=== PATIENT | female | born 1975 | race Caucasian/White ===

== ENCOUNTER 2019-03-23 05:05 | Inpatient (IN) | payer OTHER ==
[2019-03-23] VITALS (19 sets, daily range): BP systolic 83–101; BP diastolic 47–60; PULSE 74–95; RESP 18–29; Ht 160 cm; Wt 69.7 kg
[~2019-03-23] VITALS: Ht 160 cm; Wt 69.7 kg
[2019-03-23] MEDS ORDERED: SOD CHLORIDE 0.9% 1,000 ML IV STA (05:25)
[2019-03-23] MEDS ORDERED: morphine 4 MG/ML VIAL IV STA ×3 (05:25→07:03)
[2019-03-23] MEDS ORDERED: ONDANSETRON 4 MG INJ IV STA (05:25)
--- NOTE | 2019-03-23 05:53 | ERD ---
ER Documentation Chief Complaint Chief Complaint Lower abdominal pain with nausea since yesterday HPI Patient is a 43-year-old female who presents with abdominal pain. The patient has right lower quadrant abdominal pain which started yesterday. She has subjective fevers. She has had no treatment as of yet. She said that the pain is gotten worse since yesterday and it was most severe this morning which is what made her come to the emergency department. The pain is sharp in nature and constant. Upon review of old medical records this the patient's first visit to the emergency department. ROS All systems reviewed and are negative except as per history of present illness. Allergies Allergies: Coded Allergies: No Known Allergy (Unverified , 03/23/19) PMhx/Soc Medical and Surgical Hx: pt denies Medical Hx, pt denies Surgical Hx Hx Alcohol Use: Yes Smoking Status: Unknown if ever smoked FmHx Family History: No diabetes Physical Exam Vitals Vital Signs Date Temp Pulse Resp B/P (MAP) Pulse Ox O2 O2 Flow FiO2 Time Delivery Rate 03/23/19 99.3 95 18 106/64 96 05:10 (78) Physical Exam Const: Moderate distress Head: Atraumatic Eyes: Normal Conjunctiva ENT: Normal External Ears, Nose and Mouth. Neck: Full range of motion. No meningismus. Resp: Clear to auscultation bilaterally Cardio: Regular rate and rhythm, no murmurs Abd: Right lower quadrant tenderness to palpation with guarding Skin: No petechiae or rashes Back: No midline or flank tenderness Ext: No cyanosis, or edema Neur: Awake and alert Psych: Normal Mood and Affect Result Diagram: 03/23/19 0529 Results 24 hrs Laboratory Tests Test 03/23/19 05:29 White Blood Count 20.7 10^3/ul Red Blood Count 4.94 10^6/ul Hemoglobin 15.3 g/dl Hematocrit 46.0 % Mean Corpuscular Volume 93.1 fl Mean Corpuscular Hemoglobin 31.0 pg Mean Corpuscular Hemoglobin Concent 33.3 g/dl Red Cell Distribution Width 12.3 % Platelet Count 251 10^3/UL Mean Platelet Volume 9.9 fl Immature Granulocytes % 0.500 % Neutrophils % 84.9 % Lymphocytes % 7.4 % Monocytes % 7.1 % Eosinophils % 0.0 % Basophils % 0.1 % Nucleated Red Blood Cells % 0.0 /100WBC Immature Granulocytes # 0.100 10^3/ul Neutrophils # 17.5 10^3/ul Lymphocytes # 1.5 10^3/ul Monocytes # 1.5 10^3/ul Eosinophils # 0.0 10^3/ul Basophils # 0.0 10^3/ul Nucleated Red Blood Cells # 0.0 10^3/ul Current Medications Medications Dose Sig/Aminta Start Time Status Last (Trade) Ordered Route PRN Stop Time Admin Dose Reason Admin Sodium 1,000 ml @ Q1H STAT 03/23/19 03/23/19 Chloride 1,000 mls/hr IV 05:25 05:44 03/23/19 06:24 Morphine 4 mg ONCE STAT 03/23/19 DC 03/23/19 Sulfate IV 05:25 05:44 (morphine) 03/23/19 05:26 Ondansetron 4 mg ONCE STAT 03/23/19 DC 03/23/19 HCl (Zofran IV 05:25 05:44 Inj) 03/23/19 05:26 Procedures/MDM CT abdomen pelvis is pending at this time. Patient is a 43-year-old female who presents with severe right lower quadrant abdominal pain. The patient has a white count of 20. Her CT scan of the abdomen and pelvis is pending. I am concerned about acute appendicitis. The patient will be signed out to the oncoming physician for further results and final disposition. The patient was given morphine, Zofran, and normal saline bolus. Departure Diagnosis: Primary Impression: Abdominal pain Abdominal location: right lower quadrant Qualified Codes: R10.31 - Right lower quadrant pain Condition: SALVADOR Whitten MD Mar 23, 2019 05:53
[2019-03-23] MEDS ORDERED: CEFTRIAXONE 1 GM/50 ML (PMX) 50 ML IVPB STA (07:00)
[2019-03-23] MEDS ORDERED: metroNIDAZOLE 500 MG/NS (PMX) 100 ML IVPB STA (07:00)
[2019-03-23] MEDS ORDERED: SOD CHLORIDE 0.9% 1,000 ML IV SCH (08:56)
[2019-03-23] MEDS ORDERED: ACETAMINOPHEN 325 MG TAB PO PRN (09:00)
[2019-03-23] MEDS ORDERED: ONDANSETRON 4 MG INJ IV PRN ×2 (09:00→14:30)
[2019-03-23] MEDS ORDERED: DIPHTH/TET/ACEL PERTUSS (ADULT) 0.5 ML VIAL IM* ONE (10:30)
[2019-03-23] MEDS ORDERED: ACETAMINOPHEN 650 MG SUPP PR PRN (10:30)
[2019-03-23] MEDS ORDERED: NA PHOSPHATE/BIPHOS 133 ML ENEMA PR PRN (10:30)
[2019-03-23] MEDS ORDERED: NACL 0.9% 3 ML SYG IV SCH (10:30)
--- NOTE | 2019-03-23 10:38 | HP ---
Date/Time of Note Date/Time of Note DATE: 03/23/19 TIME: 10:30 Assessment/Plan VTE Prophylaxis SCD applied (from Nsg): Yes Pharmacological prophylaxis: NA/contraindicated Pharm contraindication: surgical contra Lines/Catheters IV Catheter Type (from Nrs): Peripheral IV Assessment/Plan Problems: (1) Acute appendicitis Status: Acute Comment: Patient is stable for surgery and appropriate to proceed. She has an average surgical risk as compared to her age-matched peers and should do well using all standard and routine anesthesia precautions. Using the modified Rahman's criteria she is at low intermediate risk MPRESSION: 1. Findings consistent with acute appendicitis. No evidence for perforation. 2. Small hiatal hernia. Small fat containing umbilical hernia. Qualifiers: Acute appendicitis type: with localized peritonitis Appendicitis gangrene presence: without gangrene Appendicitis perforation presence: without perforation Appendicitis abscess presence: without abscess Qualified Codes: K35.30 - Acute appendicitis with localized peritonitis, without perforation or gangrene (2) Asthma, mild intermittent, well-controlled Status: Chronic Comment: She will be given a breathing treatment prior to going into the operating room. (3) Tobacco abuse Status: Chronic Comment: Counseled (4) Umbilical hernia Status: Chronic Comment: Noted. MPRESSION: 1. Findings consistent with acute appendicitis. No evidence for perforation. 2. Small hiatal hernia. Small fat containing umbilical hernia. Qualifiers: Obstruction and gangrene presence: without obstruction or gangrene Qualified Codes: K42.9 - Umbilical hernia without obstruction or gangrene Result Diagram: 03/23/19 0529 03/23/19 0537 Results 24hrs Laboratory Tests Test 03/23/19 05:29 03/23/19 05:37 White Blood Count 20.7 H Red Blood Count 4.94 Hemoglobin 15.3 Hematocrit 46.0 Mean Corpuscular Volume 93.1 Mean Corpuscular Hemoglobin 31.0 Mean Corpuscular Hemoglobin Concent 33.3 Red Cell Distribution Width 12.3 Platelet Count 251 Mean Platelet Volume 9.9 Immature Granulocytes % 0.500 H Neutrophils % 84.9 H Lymphocytes % 7.4 L Monocytes % 7.1 Eosinophils % 0.0 Basophils % 0.1 Nucleated Red Blood Cells % 0.0 Immature Granulocytes # 0.100 H Neutrophils # 17.5 H Lymphocytes # 1.5 Monocytes # 1.5 H Eosinophils # 0.0 Basophils # 0.0 Nucleated Red Blood Cells # 0.0 Sodium Level 138 Potassium Level 4.0 Chloride Level 102 Carbon Dioxide Level 27 Anion Gap 9 Blood Urea Nitrogen 11 Creatinine 0.77 Est Glomerular Filtrat Rate mL/min > 60 Glucose Level 125 Calcium Level 9.4 Total Bilirubin 0.8 Direct Bilirubin 0.00 Indirect Bilirubin 0.8 Aspartate Amino Transf (AST/SGOT) 23 Alanine Aminotransferase (ALT/SGPT) 30 Alkaline Phosphatase 76 Total Protein 7.6 Albumin 4.3 Globulin 3.30 H Albumin/Globulin Ratio 1.30 Lipase 73 Serum HCG, Qualitative NEGATIVE HPI/ROS Admit Date/Time Admit Date/Time March 23, 2019 Hx of Present Illness This is the first [facility] admission for this 43-year-old right-handed single female who was admitted with right lower quadrant pain with work-up consistent with acute appendicitis. She had been in her usual state of functional health. She developed right lower quadrant pain that progressively worsened to the point that she developed nausea and vomiting. She had fevers x2. She presents the emergency room where she is been found to have a work-up consistent with appendicitis with fever elevated white count abnormal right lower quadrant exam and abnormal imaging. She is already been consulted on by general surgery-Dr. Juvenal Barreto, who will be taking her to the operating room later today. She is otherwise in good health and can climb 3 flights of stairs with unimpeded when she is not acutely ill. ROS Constitutional: no complaints (Since onset of fevers in the last 12 hours otherwise negative) Eyes: no complaints ENT: no complaints Respiratory: no complaints Cardiovascular: no complaints Gastrointestinal: pain (Lower quadrant pain), nausea, vomiting, other (Currently no flatus or stool) Genitourinary: no complaints (Recently negative but reports recurrent urinary tract infections) Musculoskeletal: no complaints Skin: no complaints Neurologic: no complaints Endocrine: no complaints Lymphatic: no complaints Psychological: no complaints, nl mood/affect Immunologic: no complaints PMH/Family/Social Past Medical History Medical History: urinary tract infection (Current UTI), other (Asthma intermittent mild; chronic tinnitus; G7, P3 SAB 1 TAB 3) Medications Outpatient medication regimen albuterol metered-dose inhaler on a as needed basis which she uses roughly twice a week in the high seasons Current Medications Sodium Chloride 1,000 ml @ 80 mls/hr [id number] IV Last administered on 03/23/19at 09:43; Admin Dose 80 MLS/HR; Start 03/23/19 at 08:56; Stop 03/23/19 at 21:25 Ondansetron HCl (Zofran Inj) 4 mg BRIDGE ORDER PRN IV NAUSEA/VOMITING; Start 03/23/19 at 09:00; Stop 03/24/19 at 08:59 Acetaminophen (Tylenol Tab) 650 mg ER BRIDGE PRN PO .MILD PAIN 1-3 OR TEMP; Start 03/23/19 at 09:00; Stop 03/24/19 at 08:59 IV Flush (NS 3 ml) 3 ml PER PROTOCOL IV ; Start 03/23/19 at 10:30; Status UNV Ondansetron HCl (Zofran Inj) 4 mg Q6H PRN IV NAUSEA/VOMITING; Start 03/23/19 at 10:30; Status UNV Acetaminophen (Tylenol Supp) 650 mg Q6H PRN [place] .PAIN 1-3 OR TEMP; Start 03/23/19 at 10:30; Status UNV Coded Allergies: No Known Allergy (Unverified , 03/23/19) Past Surgical History Past Surgical Hx: other ([place] teeth;) Family History Significant Family History: asthma, diabetes, hypertension, other (Positive migraine; negative anesthesia reactions) Social History Born in [place] and raised her to the age of 19; 2 years of college without experience; 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 Alcohol Use: other (Drinks greater than 10 units/week) Smoking Status: Current every day smoker (1 pack/day) Drug Use: none (Denies history of IV drug usage, however has used others) Exam/Review of Systems Vital Signs Vitals Vital Signs Date Temp Pulse Resp B/P (MAP) Pulse Ox O2 O2 Flow FiO2 Time Delivery Rate 03/23/19 98.8 92 20 101/64 98 Room Air 08:34 (76) Intake and Output 03/22/19 03/22/19 03/23/19 1515:00 23:00 07:00 IntakeIntake Total 1000 ml BalanceBalance 1000 ml Exam Exam Pleasant female curled up lying on her right hand side Constitutional: alert, oriented Head: normocephalic, atraumatic Eyes: nl conjunctiva, EOMI, nl lids ENMT: nl external ears & nose, nl lips & teeth, nl nasal mucosa & septum Neck: supple, non-tender Respiratory: clear to auscultation, normal air movement Cardiovascular: regular rate and rhythm, nl pulses Gastrointestinal: tender (Right lower quadrant rebound tenderness please see emergency room physician physical exam) Genitourinary - Female: other (Please see emergency room physician physical exam) Musculoskeletal: nl extremities to inspection Extremities: normal pulses 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
[2019-03-23] MEDS: FLUTICASONE/VILANTEROL 100-25 INH SCH (11:51)
--- NOTE | 2019-03-23 13:05 | CONS ---
Assessment/Plan Assessment/Plan Assessment/Plan (Daily) Acute appendicitis Plan: Laparoscopic appendectomy, possible open. I have discussed the procedure, indications, alternatives and risks in detail with the patient who has given an informed consent. Consultation Date/Type/Reason Admit Date/Time March 23, 2019 Date of Consultation: Mar 23, 2019 Type of Consult General surgery Reason for Consultation Acute appendicitis Date/Time of Note DATE: 03/23/19 TIME: 13:02 Hx of Present Illness The patient is an otherwise healthy 43-year-old female who presents with a 1 day history of constipation associated with abdominal pain which intensified in severity than localized to the right lower quadrant. In the emergency room she was noted to have a white count of 20,000, a tender right lower quadrant, and a CT compatible with acute appendicitis. She has had no systemic symptoms Review of systems HEENT: Unremarkable Pulmonary: History of asthma Cardiac: No history of chest pain, IL or arrhythmia GI: As in the HPI : Patient has 3 children Past Medical History Medical History: urinary tract infection (Current UTI), other (Asthma intermittent mild; chronic tinnitus; G7, P3 SAB 1 TAB 3) Home Meds No Active Prescriptions or Reported Meds Medications Current Medications Sodium Chloride 1,000 ml @ 80 mls/hr [id number] IV Last administered on 03/23/19at 09:43; Admin Dose 80 MLS/HR; Start 03/23/19 at 08:56; Stop 03/23/19 at 21:25 Ondansetron HCl (Zofran Inj) 4 mg BRIDGE ORDER PRN IV NAUSEA/VOMITING; Start 07/01 at 09:00; Stop 03/24/19 at 08:59 Acetaminophen (Tylenol Tab) 650 mg ER BRIDGE PRN PO .MILD PAIN 1-3 OR TEMP; Start 03/23/19 at 09:00; Stop 03/24/19 at 08:59 IV Flush (NS 3 ml) 3 ml PER PROTOCOL IV ; Start 03/23/19 at 10:30 Ondansetron HCl (Zofran Inj) 4 mg Q6H PRN IV NAUSEA/VOMITING; Start 03/23/19 at 10:30 Acetaminophen (Tylenol Supp) 650 mg Q6H PRN [place] .PAIN 1-3 OR TEMP; Start 03/23/19 at 10:30 Hydromorphone HCl (Dilaudid) 0.5 mg Q4H PRN IV .SEVERE PAIN 7-10; Start 03/23/19 at 10:30 Sodium Biphosphate/ Sodium Phosphate (Fleet Enema) 133 ml DAILY PRN [place] .CONSTIPATION; Start 03/23/19 at 10:30 Famotidine (Pepcid Iv) 20 mg Q12 IV ; Start 03/23/19 at 21:00 Fluticasone/ Vilanterol (Breo Ellipta 100-25 Mcg Inh) 1 inh DAILY INH Last administered on 03/23/19at 11:51; Admin Dose 1 INH; Start 03/23/19 at 11:00 Allergies: Coded Allergies: No Known Allergy (Unverified , 03/23/19) Past Surgical History Past Surgical Hx: no surgical history, other ([place] teeth;) Family History Significant Family History: no pertinent family hx Social History Alcohol Use: other (Drinks greater than 10 units/week) Smoking Status: Current every day smoker (1 pack/day) Drug Use: none (Denies history of IV drug usage, however has used others) Exam/Review of Systems Exam Vitals Vital Signs Date Temp Pulse Resp B/P (MAP) Pulse Ox O2 O2 Flow FiO2 Time Delivery Rate 03/23/19 98.8 95 22 92/61 (71) 96 Room Air 11:00 Intake and Output 03/22/19 03/22/19 03/23/19 1515:00 23:00 07:00 IntakeIntake Total 1000 ml BalanceBalance 1000 ml Constitutional: alert, oriented Psych: no complaints Head: normocephalic Eyes: nl conjunctiva ENMT: nl external ears & nose Neck: supple Respiratory: clear to auscultation Cardiovascular: regular rate and rhythm Gastrointestinal: tender (Tender right lower quadrant with guarding and trace rebound. 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 Skin: nl turgor Results Result Diagram: 03/23/19 0529 03/23/19 0537 Results 24hrs Laboratory Tests Test 03/23/19 05:29 03/23/19 05:37 03/23/19 06:01 White Blood Count 20.7 H Red Blood Count 4.94 Hemoglobin 15.3 Hematocrit 46.0 Mean Corpuscular Volume 93.1 Mean Corpuscular Hemoglobin 31.0 Mean Corpuscular Hemoglobin Concent 33.3 Red Cell Distribution Width 12.3 Platelet Count 251 Mean Platelet Volume 9.9 Immature Granulocytes % 0.500 H Neutrophils % 84.9 H Lymphocytes % 7.4 L Monocytes % 7.1 Eosinophils % 0.0 Basophils % 0.1 Nucleated Red Blood Cells % 0.0 Immature Granulocytes # 0.100 H Neutrophils # 17.5 H Lymphocytes # 1.5 Monocytes # 1.5 H Eosinophils # 0.0 Basophils # 0.0 Nucleated Red Blood Cells # 0.0 Sodium Level 138 Potassium Level 4.0 Chloride Level 102 Carbon Dioxide Level 27 Anion Gap 9 Blood Urea Nitrogen 11 Creatinine 0.77 Est Glomerular Filtrat Rate mL/min > 60 Glucose Level 125 Calcium Level 9.4 Total Bilirubin 0.8 Direct Bilirubin 0.00 Indirect Bilirubin 0.8 Aspartate Amino Transf (AST/SGOT) 23 Alanine Aminotransferase (ALT/SGPT) 30 Alkaline Phosphatase 76 Total Protein 7.6 Albumin 4.3 Globulin 3.30 H Albumin/Globulin Ratio 1.30 Lipase 73 Serum HCG, Qualitative NEGATIVE Thyroid Stimulating Hormone (TSH) 0.965 Hepatitis B Surface Antigen NEGATIVE Hepatitis C Antibody NEGATIVE Medications Medication Current Medications Sodium Chloride 1,000 ml @ 80 mls/hr [id number] IV Last administered on 03/23/19at 09:43; Admin Dose 80 MLS/HR; Start 03/23/19 at 08:56; Stop 03/23/19 at 21:25 Ondansetron HCl (Zofran Inj) 4 mg BRIDGE ORDER PRN IV NAUSEA/VOMITING; Start 03/23/19 at 09:00; Stop 03/24/19 at 08:59 Acetaminophen (Tylenol Tab) 650 mg ER BRIDGE PRN PO .MILD PAIN 1-3 OR TEMP; Start 03/23/19 at 09:00; Stop 03/24/19 at 08:59 IV Flush (NS 3 ml) 3 ml PER PROTOCOL IV ; Start 03/23/19 at 10:30 Ondansetron HCl (Zofran Inj) 4 mg Q6H PRN IV NAUSEA/VOMITING; Start 03/23/19 at 10:30 Acetaminophen (Tylenol Supp) 650 mg Q6H PRN [place] .PAIN 1-3 OR TEMP; Start 03/23 at 10:30 Hydromorphone HCl (Dilaudid) 0.5 mg Q4H PRN IV .SEVERE PAIN 7-10; Start 03/23/19 at 10:30 Sodium Biphosphate/ Sodium Phosphate (Fleet Enema) 133 ml DAILY PRN [place] .CONSTIPATION; Start 03/23/19 at 10:30 Famotidine (Pepcid Iv) 20 mg Q12 IV ; Start 03/23/19 at 21:00 Fluticasone/ Vilanterol (Breo Ellipta 100-25 Mcg Inh) 1 inh DAILY INH Last administered on 03/23/19at 11:51; Admin Dose 1 INH; Start 03/23/19 at 11:00 LUCIO CONNOR MD Mar 23, 2019 13:05
--- NOTE | 2019-03-23 13:23 | PREAC ---
Date/Time of Note Date/Time of Note DATE: 03/23/19 TIME: 13:22 Anesthesia Eval and Record Evaluation Time Pre-Procedure Interview DATE: 03/23/19 TIME: 13:22 Age 43 Sex female NPO: 8 hrs Preoperative diagnosis appendicitis Planned procedure laparoscopic appendectomy Past Medical History Past Medical History: None Surgery & Anesthesia Issues No known issue Meds Anticoagulation: No Beta Michelle within 24 hr: No Reason Beta Michelle not given: Pt. not on B-Michelle No Active Prescriptions or Reported Meds Current Medications Sodium Chloride 1,000 ml @ 80 mls/hr [id number] IV Last administered on 03/23/19at 09:43; Admin Dose 80 MLS/HR; Start 03/23/19 at 08:56; Stop 03/23/19 at 21:25 Ondansetron HCl (Zofran Inj) 4 mg BRIDGE ORDER PRN IV NAUSEA/VOMITING; Start 03/23/19 at 09:00; Stop 03/24/19 at 08:59 Acetaminophen (Tylenol Tab) 650 mg ER BRIDGE PRN PO .MILD PAIN 1-3 OR TEMP; Start 03/23/19 at 09:00; Stop 03/24/19 at 08:59 IV Flush (NS 3 ml) 3 ml PER PROTOCOL IV ; Start 03/23/19 at 10:30 Ondansetron HCl (Zofran Inj) 4 mg Q6H PRN IV NAUSEA/VOMITING; Start 03/23/19 at 10:30 Acetaminophen (Tylenol Supp) 650 mg Q6H PRN [place] .PAIN 1-3 OR TEMP; Start 03/23/19 at 10:30 Hydromorphone HCl (Dilaudid) 0.5 mg Q4H PRN IV .SEVERE PAIN 7-10; Start 03/23/19 at 10:30 Sodium Biphosphate/ Sodium Phosphate (Fleet Enema) 133 ml DAILY PRN [place] .CONSTIPATION; Start 03/23/19 at 10:30 Famotidine (Pepcid Iv) 20 mg Q12 IV ; Start 03/23/19 at 21:00 Fluticasone/ Vilanterol (Breo Ellipta 100-25 Mcg Inh) 1 inh DAILY INH Last administered on 03/23/19at 11:51; Admin Dose 1 INH; Start 03/23/19 at 11:00 Meds reviewed: Yes Allergies Coded Allergies: No Known Allergy (Unverified , 03/23/19) Allergies Reviewed: Yes Labs/Studies Labs Reviewed: Reviewed by anesthesiologist Result Diagram: 03/23/19 0529 03/23/19 0537 Laboratory Tests 03/23/19 05:29 03/23/19 05:37 test: Negative Pre-procedure Exam Last vitals Vital Signs Date Temp Pulse Resp B/P (MAP) Pulse Ox O2 O2 Flow FiO2 Time Delivery Rate 03/23/19 98.8 95 22 92/61 (71) 96 Room Air 11:00 Airway: Adequate mouth opening, Adequate thyromental dist Mallampati: Mallampati II Teeth: Normal Lung: Normal Heart: Normal ASA Physical Status ASA physical status: 2 Emergency: E Planned Anesthetic General/MAC: ETT Planned Pain Management Parenteral pain med Pre-operative Attestations Prior to commencing anesthesia and surgery, the patient was re-evaluated, there was verification of: *The patient's identity *The results of appropriate recent lab work and preoperative vital signs *The above evaluation not changing prior to induction *Anesthetic plan, risk benefits, alternative and complications discussed with patient/family; questions answered; patient/family understands, accepts and wishes to proceed. ANIKA GLOVER Mar 23, 2019 13:23
[2019-03-23] MEDS ORDERED: PROPOFOL 20 ML ONE (13:26)
[2019-03-23] MEDS ORDERED: ROCURONIUM 50 MG INJ ONE (13:41)
[2019-03-23] MEDS ORDERED: LIDOCAINE 2% (SDV) 5 ML INJ ONE (13:41)
[2019-03-23] MEDS ORDERED: DEXAMETHASONE 4 MG/ML 5 ML INJ ONE (13:44)
[2019-03-23] MEDS ORDERED: ONDANSETRON 4 MG INJ ONE (13:45)
[2019-03-23] MEDS ORDERED: SODIUM CL BACTERIOSTATIC 30 ML INJ ONE (13:59)
[2019-03-23] MEDS ORDERED: BUPIVACAINE 0.5%/EPI (SDV) 10 ML INJ ONE (13:59)
[2019-03-23] MEDS ORDERED: SUGAMMADEX SODIUM 200 MG/2 ML VIAL IV ONE (14:07)
--- NOTE | 2019-03-23 14:18 | OPR ---
Date/Time of Note Date/Time of Note DATE: 03/23/19 TIME: 14:14 Operative Report Procedure Date: Mar 23, 2019 Preoperative Diagnosis Acute appendicitis Postoperative Diagnosis Acute appendicitis with extensive localized right lower quadrant peritonitis Operation/Procedure Performed Laparoscopic appendectomy Surgeon Juvenal Connor MD Strip Feeder None Anesthesia Type: general Anesthesiologist: ANIKA GLOVER Estimated Blood Loss: minimal Transfusion none Specimen Appendix Grafts/Implants none Tubes/Drains None Complications none Pt Condition Post Procedure: stable Disposition: PACU Indications Acute appendicitis Procedure Description After satisfactory general endotracheal anesthesia was achieved, the abdomen was prepped and draped in the usual fashion. The abdomen was insufflated with carbon dioxide through an umbilical Veress needle to 15 mmHg pressure. The Veress needle was removed and the umbilical incision extended to 5 mm through which a 5 mm trocar was placed a 5 mm 0 degree lens was placed. Laparoscopy showed extensive fibrin and inflammatory changes in the right lower quadrant. Under direct visualization a 5 mm suprapubic trocar was placed. A 5 mm 0 degree lens was placed through the suprapubic trocar. Cecum was mobilized. The appendix was acutely inflamed and . Under direct visualization a 12 mm left lower quadrant trocar was placed. A window was made in the mesoappendix through which a vascular stapler was placed across the base of the cecum, closed and fired, disconnecting the appendix from the cecum. A second firing of the stapler across the mesoappendix fully freed the appendix which was then placed into an Endo Catch removed via the left lower quadrant port. The appendix was c ultured and submitted. Hemostasis of both staple lines was total. The abdomen and pelvis were irrigated with a liter of saline until clear. 2 sutures of 0 Vicryl were placed at the fascia of the 12 mm port site. The abdomen was then desufflated and the trochars were removed. The fascial suture was tied down. The skin punctures were infiltrated with 30 cc of 0.25% Marcaine with epinephrine and closed with charlee. Sponge and needle counts were reported as correct x2. JUVENAL CONNOR MD Mar 23, 2019 14:18
--- NOTE | 2019-03-23 14:19 | PAC ---
Date/Time of Note Date/Time of Note DATE: 03/23/19 TIME: 14:19 Post-Anesthesia Notes Post-Anesthesia Note Last documented vital signs Vital Signs Date Temp Pulse Resp B/P (MAP) Pulse Ox O2 O2 Flow FiO2 Time Delivery Rate 03/23/19 98.8 95 22 92/61 (71) 96 Room Air 1419 Activity: WNL Respiratory function: WNL Cardiovascular function: WNL Mental status: Baseline Pain reasonably controlled: Yes Hydration appropriate: Yes Nausea/Vomiting absent: Yes ANIKA GLOVER Mar 23, 2019 14:19
[2019-03-23] MEDS ORDERED: morphine 2 MG INJ IV PRN (14:30)
[2019-03-23] MEDS ORDERED: OXYCODONE/ACETAMINOPHEN (5/325) TAB PO PRN (14:30)
[2019-03-23] MEDS: HYDROmorphONE 0.5 MG/0.5 ML SYG IV PRN ×2 (15:39→22:35)
[2019-03-23] MEDS: ONDANSETRON 4 MG INJ IV PRN (15:53)
[2019-03-23] MEDS: OXYCODONE/ACETAMINOPHEN (5/325) TAB PO PRN (18:18)
[2019-03-23] MEDS ORDERED: FAMOTIDINE 20 MG INJ IV SCH (21:00)
[2019-03-23] MEDS: CEFAZOLIN 1 GM/50 ML (PMX) 50 ML IVPB SCH (21:43)
[2019-03-23] MEDS: metroNIDAZOLE 500 MG/NS (PMX) 100 ML IVPB SCH (22:34)
[2019-03-24] VITALS (7 sets, daily range): BP systolic 91–103; BP diastolic 50–66; PULSE 74–107; RESP 16–28
[2019-03-24] MEDS: HYDROmorphONE 0.5 MG/0.5 ML SYG IV PRN ×2 (03:56→11:01)
[2019-03-24] MEDS: CEFAZOLIN 1 GM/50 ML (PMX) 50 ML IVPB SCH (05:55)
[2019-03-24] MEDS: metroNIDAZOLE 500 MG/NS (PMX) 100 ML IVPB SCH ×3 (06:29→22:15)
[2019-03-24] MEDS: OXYCODONE/ACETAMINOPHEN (5/325) TAB PO PRN (07:31)
[2019-03-24] MEDS: FLUTICASONE/VILANTEROL 100-25 INH SCH (09:00)
[2019-03-24] MEDS: FAMOTIDINE 20 MG TAB PO SCH ×2 (09:40→20:43)
--- NOTE | 2019-03-24 12:04 | PN ---
Date/Time of Note Date/Time of Note DATE: 03/24/19 TIME: 12:00 Assessment/Plan VTE Prophylaxis Risk score (from Ns)>0 risk: 3 SCD applied (from Ns): Yes Pharmacological prophylaxis: NA/contraindicated Pharm contraindication: low risk/ambulating Lines/Catheters IV Catheter Type (from Nrsg): Sal[place] Lock Urinary Cath still in place: No Assessment/Plan Hospital Course Subjective : still with ab tenerness at op site, tolerating diet objective : Constitutional: alert, oriented Head: atraumatic, normocephalic Neck: non-tender, supple Respiratory: clear to auscultation Cardiovascular: regular rate and rhythm Gastrointestinal: S/ lead oxide mill tender, wound dressing clean and dry / ND / +BS Extremities: no edema, good radial pulses asessment and plan: 43 yo F with 1. Acute appendicitis with extensive localized right lower quadrant peritonitis -Wound cultures growing gram-negative rods, follow-up final ID and sensitivity 2. History of asthma 3. History of chronic tobacco abuse -cessation counselling dispo: F/u final cultures from wound Wean down pain meds Continue inpatient monitoring for now Continue IV antibiotics Continue supportive care and pain control Encourage ambulation Discharge tomorrow? Result Diagram: 03/24/19 0445 03/24/19 0445 Results 24hrs Laboratory Tests Test 03/24/19 04:45 03/24/19 10:36 White Blood Count 16.8 H Red Blood Count 3.95 #L Hemoglobin 12.2 # Hematocrit 37.8 Mean Corpuscular Volume 95.7 Mean Corpuscular Hemoglobin 30.9 Mean Corpuscular Hemoglobin Concent 32.3 Red Cell Distribution Width 12.9 Platelet Count 194 # Mean Platelet Volume 10.1 Immature Granulocytes % 0.500 H Neutrophils % 86.7 H Lymphocytes % 6.7 L Monocytes % 6.0 Eosinophils % 0.0 Basophils % 0.1 Nucleated Red Blood Cells % 0.0 Immature Granulocytes # 0.090 H Neutrophils # 14.5 H Lymphocytes # 1.1 Monocytes # 1.0 H Eosinophils # 0.0 Basophils # 0.0 Nucleated Red Blood Cells # 0.0 Sodium Level 135 Potassium Level 3.7 Chloride Level 106 Carbon Dioxide Level 26 Anion Gap 3 L Blood Urea Nitrogen 8 Creatinine 0.67 Est Glomerular Filtrat Rate mL/min > 60 Glucose Level 98 Calcium Level 8.1 L Total Bilirubin 0.3 Direct Bilirubin 0.00 Indirect Bilirubin 0.3 Aspartate Amino Transf (AST/SGOT) 33 Alanine Aminotransferase (ALT/SGPT) 29 Alkaline Phosphatase 58 Total Protein 5.9 #L Albumin 2.9 #L Globulin 3.00 Albumin/Globulin Ratio 0.96 Thyroid Stimulating Hormone (TSH) 1.050 Lactic Acid Level 1.2 Exam/Review of Systems Exam Vitals Vital Signs Date Temp Pulse Resp B/P (MAP) Pulse Ox O2 O2 Flow FiO2 Time Delivery Rate 03/24/19 28 07:41 03/24/19 98.1 78 97/61 (73) 98 07:29 03/23/19 Room Air 18:15 Intake and Output 03/23/19 03/23/19 03/24/19 1515:00 23:00 07:00 IntakeIntake Total 1150 ml 50 ml 150 ml OutputOutput Total 10 ml BalanceBalance 1140 ml 50 ml 150 ml Results Results 24hrs Laboratory Tests Test 03/24/19 04:45 03/24/19 10:36 White Blood Count 16.8 H Red Blood Count 3.95 #L Hemoglobin 12.2 # Hematocrit 37.8 Mean Corpuscular Volume 95.7 Mean Corpuscular Hemoglobin 30.9 Mean Corpuscular Hemoglobin Concent 32.3 Red Cell Distribution Width 12.9 Platelet Count 194 # Mean Platelet Volume 10.1 Immature Granulocytes % 0.500 H Neutrophils % 86.7 H Lymphocytes % 6.7 L Monocytes % 6.0 Eosinophils % 0.0 Basophils % 0.1 Nucleated Red Blood Cells % 0.0 Immature Granulocytes # 0.090 H Neutrophils # 14.5 H Lymphocytes # 1.1 Monocytes # 1.0 H Eosinophils # 0.0 Basophils # 0.0 Nucleated Red Blood Cells # 0.0 Sodium Level 135 Potassium Level 3.7 Chloride Level 106 Carbon Dioxide Level 26 Anion Gap 3 L Blood Urea Nitrogen 8 Creatinine 0.67 Est Glomerular Filtrat Rate mL/min > 60 Glucose Level 98 Calcium Level 8.1 L Total Bilirubin 0.3 Direct Bilirubin 0.00 Indirect Bilirubin 0.3 Aspartate Amino Transf (AST/SGOT) 33 Alanine Aminotransferase (ALT/SGPT) 29 Alkaline Phosphatase 58 Total Protein 5.9 #L Albumin 2.9 #L Globulin 3.00 Albumin/Globulin Ratio 0.96 Thyroid Stimulating Hormone (TSH) 1.050 Lactic Acid Level 1.2 Medications Medication Current Medications IV Flush (NS 3 ml) 3 ml PER PROTOCOL IV ; Start 03/23/19 at 10:30 Ondansetron HCl (Zofran Inj) 4 mg Q6H PRN IV NAUSEA/VOMITING Last administered on 03/23/19at 15:53; Admin Dose 4 MG; Start 03/23/19 at 10:30 Acetaminophen (Tylenol Supp) 650 mg Q6H PRN [place] .PAIN 1-3 OR TEMP; Start 03/23/19 at 10:30 Hydromorphone HCl (Dilaudid) 0.5 mg Q4H PRN IV .SEVERE PAIN 7-10 Last administered on 03/24/19at 11:01; Admin Dose 0.5 MG; Start 03/23/19 at 10:30 Sodium Biphosphate/ Sodium Phosphate (Fleet Enema) 133 ml DAILY PRN [place] .CONSTIPATION; Start 03/23/19 at 10:30 Fluticasone/ Vilanterol (Breo Ellipta 100-25 Mcg Inh) 1 inh DAILY INH Last administered on 03/23/19at 11:51; Admin Dose 1 INH; Start 03/23/19 at 11:00 Oxycodone/ Acetaminophen (Percocet (5/ 325)) 1 tab Q4H PRN PO .MILD PAIN (1-3); Start 03/23/19 at 14:30 Oxycodone/ Acetaminophen (Percocet (5/ 325)) 2 tab Q4H PRN PO .MODERATE PAIN (4-6) Last administered on 03/24/19at 07:31; Admin Dose 2 TAB; Start 03/23/19 at 14:30 Morphine Sulfate (morphine) 2 mg ONCE PRN IV .SEVERE PAIN 7-10; Start 03/23/19 at 14:30 Ondansetron HCl (Zofran Inj) 4 mg Q6H PRN IV NAUSEA/VOMITING; Start 03/23/19 at 14:30 Cefazolin Sodium 50 ml @ 100 mls/hr Q8 IVPB Last administered on 03/24/19at 05:55; Admin Dose 100 MLS/HR; Start 03/23/19 at 22:00 Metronidazole 100 ml @ 100 mls/hr Q8 IVPB Last administered on 03/24/19at 06:29; Admin Dose 100 MLS/HR; Start 8/11/19 at 22:00 Famotidine (Pepcid) 20 mg BID PO Last administered on 03/24/19at 09:40; Admin Dose 20 MG; Start 03/24/19 at 09:00 ROSENDO ANNE Mar 24, 2019 12:04
[2019-03-24] MEDS: DOCUSATE SODIUM 250 MG CAP PO SCH (13:09)
[2019-03-24] MEDS: LACTOBACILLUS RHAMNOSUS CAP PO SCH ×2 (13:09→20:43)
[2019-03-24] MEDS: LEVOFLOXACIN 500MG/D5W (PMX) 100 ML IVPB SCH (13:10)
[2019-03-24] MEDS: HYDROCODONE/APAP (7.5/325) TAB PO PRN ×2 (14:27→20:43)
[2019-03-24] MEDS ORDERED: DIPHENHYDRAMINE 50 MG INJ IV PRN (15:00)
--- NOTE | 2019-03-24 16:33 | QN ---
Documentation Comment Postoperative day #1 Markedly symptomatically improved Leukocytosis improved Plan: Continue medical management. Should be able to discharge tomorrow. LUCIO CONNOR MD Mar 24, 2019 16:33
[2019-03-24] MEDS: morphine 4 MG/ML VIAL IV PRN ×2 (17:32→22:16)
[2019-03-24] MEDS: ACETAMINOPHEN 500 MG TAB PO SCH (18:45)
[2019-03-25] MEDS: ACETAMINOPHEN 500 MG TAB PO SCH ×3 (02:22→12:30)
[2019-03-25] MEDS: morphine 4 MG/ML VIAL IV PRN ×4 (02:22→22:46)
[2019-03-25 02:43] VITALS: BP 101/55; PULSE 90; RESP 17
[2019-03-25] MEDS: metroNIDAZOLE 500 MG/NS (PMX) 100 ML IVPB SCH ×2 (05:54→14:19)
[2019-03-25] MEDS: HYDROCODONE/APAP (7.5/325) TAB PO PRN ×2 (05:55→14:19)
[2019-03-25 07:18] VITALS: BP 107/59; PULSE 82; RESP 19
[2019-03-25] MEDS: FAMOTIDINE 20 MG TAB PO SCH ×2 (09:00→21:56)
[2019-03-25] MEDS: LACTOBACILLUS RHAMNOSUS CAP PO SCH ×2 (09:00→21:56)
[2019-03-25] MEDS: DOCUSATE SODIUM 250 MG CAP PO SCH (09:00)
--- NOTE | 2019-03-25 09:13 | QN ---
Documentation Comment Postoperative day #2 T-max 101.6 WBC down to 14,800 Still diffusely tender Plan: Continue medical management. Repeat CT abdomen and pelvis LUCIO CONNOR MD Mar 25, 2019 09:13
[2019-03-25] MEDS: FLUTICASONE/VILANTEROL 100-25 INH SCH (09:30)
[2019-03-25] MEDS ORDERED: IOHEXOL 14.3 MG(I)/ML (ADULT) BTL PO ONE (09:30)
[2019-03-25] MEDS: ONDANSETRON 4 MG INJ IV PRN (10:18)
[2019-03-25] MEDS: POLYETHYLENE GLYCOL 17 GM PACKET PO SCH (12:00)
[2019-03-25] MEDS ORDERED: CEFTRIAXONE 1 GM/50 ML (PMX) 50 ML IVPB SCH (12:00)
[2019-03-25] MEDS ORDERED: SOD CHLORIDE 0.9% 100 ML ONE (12:14)
[2019-03-25] MEDS ORDERED: IOHEXOL 300MG/ML 150 ML BTL ONE (12:14)
[2019-03-25] MEDS: LEVOFLOXACIN 500MG/D5W (PMX) 100 ML IVPB SCH (12:17)
--- NOTE | 2019-03-25 12:41 | PN ---
DATE: 03/25/2019 SUBJECTIVE: Patient continues with a lot of abdominal pain. There is no nausea. She was tolerating a diet, but has not had a bowel movement yet. I also was able to speak at the bedside with Dr. Feliberto burciaga, the surgeon and we discussed the patient's case together. PHYSICAL EXAMINATION: VITAL SIGNS: Temperature maximum overnight 101.6. At this time, 98.2, pulse is 82, respirations 19, blood pressure 107/59, saturations 97% on room air. GENERAL: The patient remains acutely ill looking currently, but in no distress. She is holding very still. HEENT: Head is normocephalic. CHEST: Clear to auscultation. CARDIOVASCULAR: S1, S2 only. ABDOMEN: Diffusely sore and tender. Bowel sounds are hypoactive. EXTREMITIES: There is no lower extremity edema. LABORATORY VALUES: White count continues to trend down. Hemoglobin is also on the low side today. There is no bandemia and her labs, magnesium is 1.7, but the rest of her basic metabolic profile incl uding phosphorus levels are fairly within normal range. Surgery wants to order a CT of the abdomen t o ensure the patient has not found possibly an abscess, we also reviewed microbiology cultures and wo und cultures from the surgical site is growing Escherichia coli as well as enterococcus species resis tant to a few organisms but sensitive to cefotaxime. ASSESSMENT: A 43-year-old female who had presented with abdominal pain and was found to have an acut e appendicitis. Manage as follows: 1. Acute appendicitis with extensive localized right lower quadrant peritonitis, wound cultures grow ing Escherichia coli and enterococcus. -- adjust antibiotics, white count is improving. Continue current supportive care. 2. History of asthma. 3. History of chronic tobacco abuse, status post cessation counseling. 4. Sepsis secondary to abdominal pain and peritonitis. DISPOSITION: Continue inpatient pain control and management, follow up CT of the abdomen and pelvis per surgery if he orders it and continue to await clinical improvement. We will also send for blood cultures and adjust antibiotics according to the cultures and essentially go from there. Dictated By: ROSENDO ANNE MD BA/NTS Conf#: [id number] DID#: [id number] CC: MT WELLS MD;*EndCC*
[2019-03-25 14:18] VITALS: BP 111/52; PULSE 74; RESP 19
[2019-03-25] MEDS: PIPER-TAZO 3.375 GM IV (PMX) 100 ML IVPB SCH (17:21)
[2019-03-25 20:14] VITALS: BP 100/55; PULSE 72; RESP 18
[2019-03-26] MEDS: PIPER-TAZO 3.375 GM IV (PMX) 100 ML IVPB SCH ×4 (00:04→19:59)
[2019-03-26 02:11] VITALS: BP 101/59; PULSE 107; RESP 19
[2019-03-26 03:30] VITALS: BP 102/55; PULSE 84; RESP 18
[2019-03-26] MEDS: morphine 4 MG/ML VIAL IV PRN ×3 (06:53→21:36)
[2019-03-26 07:55] VITALS: BP 97/55; PULSE 76; RESP 18
[2019-03-26] MEDS: POLYETHYLENE GLYCOL 17 GM PACKET PO SCH (09:00)
[2019-03-26] MEDS: FLUTICASONE/VILANTEROL 100-25 INH SCH (09:59)
[2019-03-26] MEDS: DOCUSATE SODIUM 250 MG CAP PO SCH (10:00)
[2019-03-26] MEDS: LACTOBACILLUS RHAMNOSUS CAP PO SCH ×2 (10:00→21:30)
[2019-03-26] MEDS: FAMOTIDINE 20 MG TAB PO SCH ×2 (10:00→21:30)
[2019-03-26] MEDS ORDERED: LIDOCAINE 1% (MDV) 20 ML INJ ONE (13:03)
[2019-03-26] MEDS ORDERED: IOHEXOL 300MG/ML 150 ML BTL ONE (13:36)
[2019-03-26] MEDS ORDERED: FENTAnyl 50 MCG/ML VIAL ONE ×2 (14:10)
--- NOTE | 2019-03-26 15:38 | PN ---
Date/Time of Note Date/Time of Note DATE: 03/26/19 TIME: 15:36 Assessment/Plan VTE Prophylaxis Risk score (from [facility])>0 risk: 4 SCD applied (from [facility]): Yes Pharmacological prophylaxis: other Pharm contraindication: other Lines/Catheters IV Catheter Type (from [facility]): Peripheral IV Urinary Cath still in place: No Assessment/Plan Assessment/Plan 1. Acute appendicitis with extensive localized right lower quadrant peritonitis, s/p appendectomy on 03/23/2019, s/p pelvic abscess drainage on 03/26/2019, continue zosyn, follow up with culture 2. History of asthma, stable 3. History of chronic tobacco abuse, status post cessation counseling. 4. Sepsis secondary to abdominal pain and peritonitis 5. DVT prophylaxis: SCDs Result Diagram: 03/26/19 0455 03/26/19 0455 Results 24hrs Laboratory Tests Test 03/26/19 04:55 03/26/19 11:55 White Blood Count 19.4 #H Red Blood Count 3.81 L Hemoglobin 11.8 L Hematocrit 35.6 L Mean Corpuscular Volume 93.4 Mean Corpuscular Hemoglobin 31.0 Mean Corpuscular Hemoglobin Concent 33.1 Red Cell Distribution Width 13.0 Platelet Count 211 # Mean Platelet Volume 10.2 Immature Granulocytes % 0.600 H Neutrophils % 85.4 H Lymphocytes % 5.6 L Monocytes % 7.8 Eosinophils % 0.4 Basophils % 0.2 Nucleated Red Blood Cells % 0.0 Immature Granulocytes # 0.120 H Neutrophils # 16.6 H Lymphocytes # 1.1 Monocytes # 1.5 H Eosinophils # 0.1 Basophils # 0.0 Nucleated Red Blood Cells # 0.0 Sodium Level 135 Potassium Level 3.2 L Chloride Level 101 Carbon Dioxide Level 25 Anion Gap 9 # Blood Urea Nitrogen 6 L Creatinine 0.61 Est Glomerular Filtrat Rate mL/min > 60 Glucose Level 69 #L Calcium Level 8.2 L Prothrombin Time 16.7 H Prothrombin Time Ratio 1.3 INR International Normalized Ratio 1.34 Activated Partial Thromboplast Time 36.9 H Subjective 24 Hr Interval Summary Free Text/Dictation abdominal pain Exam/Review of Systems Exam Vitals Vital Signs Date Temp Pulse Resp B/P (MAP) Pulse Ox O2 O2 Flow FiO2 Time Delivery Rate 03/26/19 98.2 76 18 97/55 (69) 96 Room Air 07:55 Intake and Output 03/25/19 03/25/19 03/26/19 1515:00 23:00 07:00 IntakeIntake Total 150 ml 770 ml 400 ml OutputOutput Total 200 ml 200 ml BalanceBalance 150 ml 570 ml 200 ml Constitutional: alert, oriented, well developed Psych: no complaints, nl mood/affect Head: normocephalic, atraumatic Eyes: nl conjunctiva, EOMI, nl lids ENMT: nl external ears & nose, nl lips & teeth, nl nasal mucosa & septum Neck: supple, non-tender Respiratory: clear to auscultation, normal air movement; No congested cough, No crackles/rales, No diminished breath sounds, No intercostal retraction, No labored breathing, No respirations, No tactile fremitus, No wheezing, No other Cardiovascular: regular rate and rhythm, nl pulses; No bruits, No diastolic murmur, No edema, No gallop, No irregular rhythm, No jugular venous distention (JVD), No murmurs/extra sounds, No rub, No systolic murmur, No S3, No S4, No other Gastrointestinal: soft, tender (diffuse) Musculoskeletal: nl extremities to inspection Extremities: normal pulses; No calf tenderness, No cyanosis, No clubbing, No edema, No pitting pedal edema, No palpable cord, No tenderness, No other Neurological: UTILITY TELLER II-XII intact, nl mental status, nl speech, nl strength Results Results 24hrs Laboratory Tests Test 03/26/19 04:55 03/26/19 11:55 White Blood Count 19.4 #H Red Blood Count 3.81 L Hemoglobin 11.8 L Hematocrit 35.6 L Mean Corpuscular Volume 93.4 Mean Corpuscular Hemoglobin 31.0 Mean Corpuscular Hemoglobin Concent 33.1 Red Cell Distribution Width 13.0 Platelet Count 211 # Mean Platelet Volume 10.2 Immature Granulocytes % 0.600 H Neutrophils % 85.4 H Lymphocytes % 5.6 L Monocytes % 7.8 Eosinophils % 0.4 Basophils % 0.2 Nucleated Red Blood Cells % 0.0 Immature Granulocytes # 0.120 H Neutrophils # 16.6 H Lymphocytes # 1.1 Monocytes # 1.5 H Eosinophils # 0.1 Basophils # 0.0 Nucleated Red Blood Cells # 0.0 Sodium Level 135 Potassium Level 3.2 L Chloride Level 101 Carbon Dioxide Level 25 Anion Gap 9 # Blood Urea Nitrogen 6 L Creatinine 0.61 Est Glomerular Filtrat Rate mL/min > 60 Glucose Level 69 #L Calcium Level 8.2 L Prothrombin Time 16.7 H Prothrombin Time Ratio 1.3 INR International Normalized Ratio 1.34 Activated Partial Thromboplast Time 36.9 H Medications Medication Current Medications IV Flush (NS 3 ml) 3 ml PER PROTOCOL IV ; Start 03/23/19 at 10:30 Ondansetron HCl (Zofran Inj) 4 mg Q6H PRN IV NAUSEA/VOMITING Last administered on 03/25/19 10:18; Admin Dose 4 MG; Start 03/23/19 at 10:30 Acetaminophen (Tylenol Supp) 650 mg Q6H PRN [place] .PAIN 1-3 OR TEMP Last administered on 03/26/19 02:49; Admin Dose 650 MG; Start 03/23/19 at 10:30 Sodium Biphosphate/ Sodium Phosphate (Fleet Enema) 133 ml DAILY PRN [place] .CONSTIPATION; Start 03/23/19 at 10:30 Fluticasone/ Vilanterol (Breo Ellipta 100-25 Mcg Inh) 1 inh DAILY INH Last administered on 03/26/19 09:59; Admin Dose 1 INH; Start 03/23/19 at 11:00 Ondansetron HCl (Zofran Inj) 4 mg Q6H PRN IV NAUSEA/VOMITING; Start 03/23/19 at 14:30 Famotidine (Pepcid) 20 mg BID PO Last administered on 03/26/19 10:00; Admin Dose 20 MG; Start 03/24/19 at 09:00 Docusate Sodium (Colace) 250 mg DAILY PO Last administered on 03/26/19 10:00; Admin Dose 250 MG; Start 03/24/19 at 12:00 Acetaminophen/ Hydrocodone Bitart ([place] (7.5-325)) 1 tab Q6H PRN PO MODERATE PAIN LEVEL 4-6 Last administered on 03/25/19 14:19; Admin Dose 1 TAB; Start 03/24/19 at 12:00 Lactobacillus Acidophilus/ Rhamnosus (Culturelle) 1 cap BID PO Last administered on 03/26/19 10:00; Admin Dose 1 CAP; Start 03/24/19 at 12:30 Diphenhydramine HCl (Benadryl) 25 mg Q8H PRN IV ITCHING; Start 03/24/19 at 15:00 Morphine Sulfate (morphine) 3 mg Q4H PRN IV SEVERE PAIN LEVEL 7-10 Last administered on 03/26/19at 06:53; Admin Dose 3 MG; Start 03/24/19 at 16:00 Polyethylene Glycol (Miralax) 17 gm DAILY PO ; Start 03/25/19 at 12:00 Piperacillin Sod/ Tazobactam Sod 100 ml @ 200 mls/hr Q6 IVPB Last administered on 03/26/19at 12:45; Admin Dose 200 MLS/HR; Start 03/25/19 at 18:00 SINGH CAT MD Mar 26, 2019 15:38
[2019-03-26 16:35] VITALS: BP 90/57; PULSE 84; RESP 16
[2019-03-26 20:01] VITALS: BP 99/58; PULSE 92; RESP 20
[2019-03-26 20:44] VITALS: BP 98/53; PULSE 90; RESP 20
[2019-03-26] MEDS ORDERED: ACETAMINOPHEN 325 MG TAB PO PRN (21:30)
[2019-03-27 02:13] VITALS: BP 100/63; RESP 17
[2019-03-27] MEDS: morphine 4 MG/ML VIAL IV PRN (05:07)
[2019-03-27] MEDS: PIPER-TAZO 3.375 GM IV (PMX) 100 ML IVPB SCH ×5 (05:09→23:41)
--- NOTE | 2019-03-27 07:19 | QN ---
Documentation Comment Postoperative day #[address] drainage Symptomatically improved T-max down to 100.7 WBC down to 10,000 Plan: Continue medical management LUCIO CONNOR MD Mar 27, 2019 07:19
[2019-03-27 07:40] VITALS: BP 87/55; PULSE 78; RESP 18
[2019-03-27] MEDS: POLYETHYLENE GLYCOL 17 GM PACKET PO SCH (09:00)
[2019-03-27] MEDS: LACTOBACILLUS RHAMNOSUS CAP PO SCH ×2 (09:31→20:47)
[2019-03-27] MEDS: DOCUSATE SODIUM 250 MG CAP PO SCH (09:31)
[2019-03-27] MEDS: FAMOTIDINE 20 MG TAB PO SCH ×2 (09:31→20:47)
[2019-03-27] MEDS: FLUTICASONE/VILANTEROL 100-25 INH SCH (09:31)
[2019-03-27] MEDS: HYDROCODONE/APAP (7.5/325) TAB PO PRN ×2 (09:36→17:46)
[2019-03-27] MEDS ORDERED: POTASSIUM CHLORIDE (SR) 20 MEQ TAB PO STA (12:52)
[2019-03-27] MEDS ORDERED: HYDROmorphONE 0.5 MG/0.5 ML SYG IV PRN (13:00)
[2019-03-27] MEDS ORDERED: SOD CHLORIDE 0.9% 500 ML IV ONE (13:00)
--- NOTE | 2019-03-27 13:09 | PN ---
Date/Time of Note Date/Time of Note DATE: 03/27/19 TIME: 13:03 Assessment/Plan VTE Prophylaxis Risk score (from Ns)>0 risk: 1 SCD applied (from Ns): Yes Pharmacological prophylaxis: LMWH Lines/Catheters IV Catheter Type (from Nrs): Peripheral IV Urinary Cath still in place: No Assessment/Plan Assessment/Plan 1. Acute appendicitis with extensive localized right lower quadrant zaida tonitis, s/p appendectomy on 03/23/2019, s/p pelvic abscess drainage on 03/26/2019, leukocytosis resolved, continue zosyn, follow up with culture 2. History of asthma, stable 3. History of chronic tobacco abuse, status post cessation counseling. 4. Sepsis secondary to abdominal pain and peritonitis 5. DVT prophylaxis: lovenox 6. Hypotension, adjust narcotics, NS bolus Result Diagram: 03/27/19 0507 03/27/19 0507 Results 24hrs Laboratory Tests Test 03/27/19 05:07 White Blood Count 10.8 # Red Blood Count 3.75 L Hemoglobin 11.4 L Hematocrit 35.0 L Mean Corpuscular Volume 93.3 Mean Corpuscular Hemoglobin 30.4 Mean Corpuscular Hemoglobin Concent 32.6 Red Cell Distribution Width 13.2 Platelet Count 226 Mean Platelet Volume 9.8 Immature Granulocytes % 0.500 H Neutrophils % 78.7 H Lymphocytes % 10.6 L Monocytes % 9.0 Eosinophils % 1.0 Basophils % 0.2 Nucleated Red Blood Cells % 0.0 Immature Granulocytes # 0.050 H Neutrophils # 8.5 H Lymphocytes # 1.1 Monocytes # 1.0 H Eosinophils # 0.1 Basophils # 0.0 Nucleated Red Blood Cells # 0.0 Sodium Level 139 Potassium Level 3.4 L Chloride Level 103 Carbon Dioxide Level 30 Anion Gap 6 Blood Urea Nitrogen 5 L Creatinine 0.63 Est Glomerular Filtrat Rate mL/min > 60 Glucose Level 121 # Calcium Level 8.2 L Subjective 24 Hr Interval Summary Free Text/Dictation pain is less, no BM yet Exam/Review of Systems Exam Vitals Vital Signs Date Temp Pulse Resp B/P (MAP) Pulse Ox O2 O2 Flow FiO2 Time Delivery Rate 03/27/19 98.8 78 18 87/55 (66) 96 Room Air 07:40 Intake and Output 03/26/19 03/26/19 03/27/19 1515:00 23:00 07:00 IntakeIntake Total 100 ml 100 ml 380 ml BalanceBalance 100 ml 100 ml 380 ml Constitutional: alert, oriented, well developed Psych: no complaints, nl mood/affect Head: normocephalic, atraumatic Eyes: nl conjunctiva, EOMI, nl lids, nl sclera, PERRL ENMT: nl external ears & nose, nl lips & teeth, nl nasal mucosa & septum Neck: supple, non-tender Respiratory: clear to auscultation, normal air movement; No congested cough, No crackles/rales, No diminished breath sounds, No intercostal retraction, No labored breathing, No respirations, No tactile fremit us, No wheezing, No other Cardiovascular: regular rate and rhythm, nl pulses; No bruits, No diastolic murmur, No edema, No gallop, No irregular rhythm, No jugular venous distention (JVD), No murmurs/extra sounds, No rub, No systolic murmur, No S3, No S4, No other Gastrointestinal: soft, tender Musculoskeletal: nl extremities to inspection Extremities: normal pulses; No calf tenderness, No cyanosis, No clubbing, No edema, No pitting pedal edema, No palpable cord, No tenderness, No other Neurological: ACCOUNTANT PROPERTY II-XII intact, nl mental status, nl speech, nl strength Results Results 24hrs Laboratory Tests Test 03/27/19 05:07 White Blood Count 10.8 # Red Blood Count 3.75 L Hemoglobin 11.4 L Hematocrit 35.0 L Mean Corpuscular Volume 93.3 Mean Corpuscular Hemoglobin 30.4 Mean Corpuscular Hemoglobin Concent 32.6 Red Cell Distribution Width 13.2 Platelet Count 226 Mean Platelet Volume 9.8 Immature Granulocytes % 0.500 H Neutrophils % 78.7 H Lymphocytes % 10.6 L Monocytes % 9.0 Eosinophils % 1.0 Basophils % 0.2 Nucleated Red Blood Cells % 0.0 Immature Granulocytes # 0.050 H Neutrophils # 8.5 H Lymphocytes # 1.1 Monocytes # 1.0 H Eosinophils # 0.1 Basophils # 0.0 Nucleated Red Blood Cells # 0.0 Sodium Level 139 Potassium Level 3.4 L Chloride Level 103 Carbon Dioxide Level 30 Anion Gap 6 Blood Urea Nitrogen 5 L Creatinine 0.63 Est Glomerular Filtrat Rate mL/min > 60 Glucose Level 121 # Calcium Level 8.2 L Medications Medication Current Medications IV Flush (NS 3 ml) 3 ml PER PROTOCOL IV ; Start 03/23/19 at 10:30 Ondansetron HCl (Zofran Inj) 4 mg Q6H PRN IV NAUSEA/VOMITING Last administered on 03/25/19 10:18; Admin Dose 4 MG; Start 03/23/19 at 10:30 Acetaminophen (Tylenol Supp) 650 mg Q6H PRN [place] .PAIN 1-3 OR TEMP Last administered on 03/26/19 02:49; Admin Dose 650 MG; Start 03/23/19 at 10:30 Sodium Biphosphate/ Sodium Phosphate (Fleet Enema) 133 ml DAILY PRN [place] .CONSTIPATION; Start 03/23/19 at 10:30 Fluticasone/ Vilanterol (Breo Ellipta 100-25 Mcg Inh) 1 inh DAILY INH Last administered on 03/27/19 09:31; Admin Dose 1 INH; Start 03/23/19 at 11:00 Ondansetron HCl (Zofran Inj) 4 mg Q6H PRN IV NAUSEA/VOMITING; Start 03/23/19 at 14:30 Famotidine (Pepcid) 20 mg BID PO Last administered on 03/27/19 09:31; Admin Dose 20 MG; Start 03/24/19 at 09:00 Docusate Sodium (Colace) 250 mg DAILY PO Last administered on 03/27/19 09:31; Admin Dose 250 MG; Start 03/24/19 at 12:00 Acetaminophen/ Hydrocodone Bitart ([place] (7.5-325)) 1 tab Q6H PRN PO MODERATE PAIN LEVEL 4-6 Last administered on 03/27/19 09:36; Admin Dose 1 TAB; Start 03/24/19 at 12:00 Lactobacillus Acidophilus/ Rhamnosus (Culturelle) 1 cap BID PO Last administer ed on 03/27/19 09:31; Admin Dose 1 CAP; Start 03/24/19 at 12:30 Diphenhydramine HCl (Benadryl) 25 mg Q8H PRN IV ITCHING; Start 03/24/19 at 15:00 Morphine Sulfate (morphine) 3 mg Q4H PRN IV SEVERE PAIN LEVEL 7-10 Last administered on 03/27/19 05:07; Admin Dose 3 MG; Start 03/24/19 at 16:00 Polyethylene Glycol (Miralax) 17 gm DAILY PO ; Start 03/25/19 at 12:00 Piperacillin Sod/ Tazobactam Sod 100 ml @ 200 mls/hr Q6 IVPB Last administered on 03/27/19at 05:09; Admin Dose 200 MLS/HR; Start 03/25/19 at 18:00 Acetaminophen (Tylenol Tab) 650 mg Q6H PRN PO MILD PAIN(1-3)OR ELEVATED TEMP Last administered on 03/26/19at 21:38; Admin Dose 650 MG; Start 03/26/19 at 21:30 SINGH CAT MD Mar 27, 2019 13:09
[2019-03-27] MEDS: ENOXAPARIN 40 MG/0.4 ML SYG SC SCH (14:00)
[2019-03-27 14:44] VITALS: BP 85/47; PULSE 76; RESP 18
[2019-03-27 15:30] VITALS: BP 92/51; PULSE 89
[2019-03-27 20:21] VITALS: BP 108/57; PULSE 88; RESP 20
[2019-03-28 02:52] VITALS: BP 111/62; PULSE 85; RESP 17
[2019-03-28] MEDS: HYDROCODONE/APAP (7.5/325) TAB PO PRN ×2 (04:11→18:34)
[2019-03-28] MEDS: PIPER-TAZO 3.375 GM IV (PMX) 100 ML IVPB SCH ×3 (05:47→17:42)
--- NOTE | 2019-03-28 07:39 | QN ---
Documentation Comment Postoperative day #5 Afebrile x24 hours. Still complains of lower abdominal pain although improved. Leukocytosis resolved Drainage minimal serous Plan: ATHMINA drain removed LUCIO CONNOR MD Mar 28, 2019 07:39
[2019-03-28 08:11] VITALS: BP 84/54; PULSE 61; RESP 18
[2019-03-28] MEDS: FLUTICASONE/VILANTEROL 100-25 INH SCH (09:19)
[2019-03-28] MEDS: FAMOTIDINE 20 MG TAB PO SCH (09:19)
[2019-03-28] MEDS: POLYETHYLENE GLYCOL 17 GM PACKET PO SCH (09:20)
[2019-03-28] MEDS: DOCUSATE SODIUM 250 MG CAP PO SCH (09:20)
[2019-03-28] MEDS: LACTOBACILLUS RHAMNOSUS CAP PO SCH (09:20)
[2019-03-28] MEDS: ENOXAPARIN 40 MG/0.4 ML SYG SC SCH (09:25)
--- NOTE | 2019-03-28 13:45 | PN ---
Date/Time of Note Date/Time of Note DATE: 03/28/19 TIME: 13:42 Assessment/Plan VTE Prophylaxis Risk score (from Ns)>0 risk: 3 SCD applied (from Ns): Yes Pharmacological prophylaxis: LMWH Lines/Catheters IV C[facility] Type [facility]from [facility] [place] Urinary Cath still in place: No Assessment/Plan Assessment/Plan 1. Acute appendicitis with extensive localized right lower quadrant perito nitis, s/p appendectomy on 03/23/2019, s/p pelvic abscess drainage on 03/26/2019, drainage is removed on 03/28/2019, continue zosyn, follow up with CBC, repeat CT scan 2. History of asthma, stable 3. History of chronic tobacco abuse, status post cessation counseling. 4. Sepsis secondary to abdominal pain and peritonitis 5. DVT prophylaxis: lovenox Result Diagram: 03/28/19 0504 03/28/19 0504 Results 24hrs Laboratory Tests Test 03/28/19 05:04 White Blood Count 10.1 Red Blood Count 3.52 L Hemoglobin 11.0 L Hematocrit 32.6 L Mean Corpuscular Volume 92.6 Mean Corpuscular Hemoglobin 31.3 Mean Corpuscular Hemoglobin Concent 33.7 Red Cell Distribution Width 13.2 Platelet Count 246 Mean Platelet Volume 9.8 Immature Granulocytes % 0.600 H Neutrophils % 71.5 Lymphocytes % 16.4 Monocytes % 8.8 Eosinophils % 2.3 Basophils % 0.4 Nucleated Red Blood Cells % 0.0 Immature Granulocytes # 0.060 H Neutrophils # 7.3 Lymphocytes # 1.7 Monocytes # 0.9 Eosinophils # 0.2 Basophils # 0.0 Nucleated Red Blood Cells # 0.0 Sodium Level 137 Potassium Level 3.7 Chloride Level 106 Carbon Dioxide Level 26 Anion Gap 5 Blood Urea Nitrogen 7 Creatinine 0.54 Est Glomerular Filtrat Rate mL/min > 60 Glucose Level 93 Calcium Level 8.2 L Magnesium Level 2.0 Subjective 24 Hr Interval Summary Free Text/Dictation afebrile Exam/Review of Systems Exam Vitals Vital Signs Date Temp Pulse Resp B/P (MAP) Pulse Ox O2 O2 Flow FiO2 Time Delivery Rate 03/28/19 98.4 61 18 84/54 (64) 95 Nasal 08:11 Cannula Intake and Output 03/27/19 03/27/19 03/28/19 1515:00 23:00 07:00 IntakeIntake Total 1040 ml 300 ml 200 ml BalanceBalance 1040 ml 300 ml 200 ml Constitutional: alert, oriented, well developed Psych: no complaints, nl mood/affect Head: normocephalic, atraumatic Eyes: nl conjunctiva, EOMI, nl lids ENMT: nl external ears & nose, nl lips & teeth, nl nasal mucosa & septum Neck: supple, non-tender Respiratory: clear to auscultation, normal air movement; No congested cough, No crackles/rales, No diminished breath sounds, No intercostal retraction, No labored breathing, No respirations, No tactile fremitus, No wheezing, No other Cardiovascular: regular rate and rhythm, nl pulses; No bruits, No diastolic murmur, No edema, No gallop, No irregular rhythm, No jugular venous distention (JVD), No murmurs/extra sounds, No rub, No systolic murmur, No S3, No S4, No other Gastrointestinal: soft, nl liver, spleen Musculoskeletal: nl extremities to inspection Extremities: normal pulses; No calf tenderness, No cyanosis, No clubbing, No edema, No pitting pedal edema, No palpable cord, No tenderness, No other Neurological: COM[employer] II-XII intact, nl mental status, nl speech, nl strength Results Results 24hrs Laboratory Tests Test 03/28/19 05:04 White Blood Count 10.1 Red Blood Count 3.52 L Hemoglobin 11.0 L Hematocrit 32.6 L Mean Corpuscular Volume 92.6 Mean Corpuscular Hemoglobin 31.3 Mean Corpuscular Hemoglobin Concent 33.7 Red Cell Distribution Width 13.2 Platelet Count 246 Mean Platelet Volume 9.8 Immature Granulocytes % 0.600 H Neutrophils % 71.5 Lymphocytes % 16.4 Monocytes % 8.8 Eosinophils % 2.3 Basophils % 0.4 Nucleated Red Blood Cells % 0.0 Immature Granulocytes # 0.060 H Neutrophils # 7.3 Lymphocytes # 1.7 Monocytes # 0.9 Eosinophils # 0.2 Basophils # 0.0 Nucleated Red Blood Cells # 0.0 Sodium Level 137 Potassium Level 3.7 Chloride Level 106 Carbon Dioxide Level 26 Anion Gap 5 Blood Urea Nitrogen 7 Creatinine 0.54 Est Glomerular Filtrat Rate mL/min > 60 Glucose Level 93 Calcium Level 8.2 L Magnesium Level 2.0 Medications Medication Current Medications IV Flush (NS 3 ml) 3 ml PER PROTOCOL IV ; Start 03/23/19 at 10:30 Ondansetron HCl (Zofran Inj) 4 mg Q6H PRN IV NAUSEA/VOMITING Last administered on 03/25/19 10:18; Admin Dose 4 MG; Start 03/23/19 at 10:30 Acetaminophen (Tylenol Supp) 650 mg Q6H PRN MS .PAIN 1-3 OR TEMP Last administered on 03/26/19 02:49; Admin Dose 650 MG; Start 03/23/19 at 10:30 Sodium Biphosphate/ Sodium Phosphate (Fleet Enema) 133 ml DAILY PRN MS .CONSTIPATION; Start 03/23/19 at 10:30 Fluticasone/ Vilanterol (Breo Ellipta 100-25 Mcg Inh) 1 inh DAILY INH Last administered on 03/28/19 09:19; Admin Dose 1 INH; Start 03/23/19 at 11:00 Ondansetron HCl (Zofran Inj) 4 mg Q6H PRN IV NAUSEA/VOMITING; Start 03/23/19 at 14:30 Famotidine (Pepcid) 20 mg BID PO Last administered on 03/28/19 09:19; Admin Dose 20 MG; Start 03/24/19 at 09:00 Docusate Sodium (Colace) 250 mg DAILY PO Last administered on 03/28/19 09:20; Admin Dose 250 MG; Start 03/24/19 at 12:00 Acetaminophen/ Hydrocodone Bitart ([place] (7.5-325)) 1 tab Q6H PRN PO MODERATE PAIN LEVEL 4-6 Last administered on 03/28/19 04:11; Admin Dose 1 TAB; Start 03/24/19 at 12:00 Lactobacillus Acidophilus/ Rhamnosus (Culturelle) 1 cap BID PO Last administered on 03/28/19 09:20; Admin Dose 1 CAP; Start 03/24/19 at 12:30 Diphenhydramine HCl (Benadryl) 25 mg Q8H PRN IV ITCHING Last administered on 03/27/19 22:17; Admin Dose 25 MG; Start 03/24/19 at 15:00 Polyethylene Glycol (Miralax) 17 gm DAILY PO Last administered on 03/28/19 09:20; Admin Dose 17 GM; Start 03/25/19 at 12:00 Piperacillin Sod/ Tazobactam Sod 100 ml @ 200 mls/hr Q6 IVPB Last administered on 03/28/19 12:14; Admin Dose 200 MLS/HR; Start 03/25/19 at 18:00 Acetaminophen (Tylenol Tab) 650 mg Q6H PRN PO MILD PAIN(1-3)OR ELEVATED TEMP Last administered on 03/26/19 21:38; Admin Dose 650 MG; Start 03/26/19 at 21:30 Hydromorphone HCl (Dilaudid) 0.5 mg Q3H PRN IV SEVERE PAIN LEVEL 7-10 Last administered on 03/27/19 20:49; Admin Dose 0.5 MG; Start 03/27/19 at 13:00 Enoxaparin Sodium (Lovenox) 40 mg DAILY SC Last administered on 03/28/19 09:25; Admin Dose 40 MG; Start 03/27/19 at 13:30 SINGH CAT MD Mar 28, 2019 13:45
[2019-03-28 14:16] VITALS: BP 102/61; PULSE 81; RESP 18
--- NOTE | 2019-03-28 15:48 | DS ---
Date/Time of Note Date/Time of Note DATE: 03/28/19 TIME: 15:39 Discharge Summary Admission/Discharge Info Admit Date/Time Mar 23, 2019 at 08:58 Discharge Date/Time Discharge Diagnosis 1. Acute appendicitis with extensive localized right lower quadrant peritoni tis, s/p appendectomy on 03/23/2019, s/p pelvic abscess drainage on 03/26/2019, drainage is removed on 03/28/2019, continue zosyn, follow up with CBC, repeat CT scan 2. History of asthma, stable 3. History of chronic tobacco abuse, status post cessation counseling. 4. Sepsis secondary to abdominal pain and peritonitis 5. DVT prophylaxis: lovenox Patient Condition: Stable Hospital Course This is the first [facility] admission for this 43-year-old right-handed single female who was admitted with right lower quadrant pain with work-up consistent with acute appendicitis. She had been in her usual state of functional health. She developed right lower quadrant pain that progressively worsened to the point that she developed nausea and vomiting. CT scan findings indicates acute appendicitis. Patient got lap appendectomy on 03/23/2019 that revealed Acute appendicitis with extensive localized right lower quadrant peritonitis. Patient is on zosyn, but she had persistent leukocytosis. repeated CT scan revealed a dominant rim enhancing fluid collection within the pelvic cul-de-sac which likely reflects an abscess on 03/25/2019. CT guided pelvic abscess drainage was done on 03/26/2019 with 30 cc fluid, culture for the fluid is pending. Leukocytosis resolved. There is no drain today, drainage tube is removed this morning. We will continue zosyn, repeat CT scan. Patient can be discharged home with oral antibiotics if no significant fluid collection on repeated CT scan. Insurance company called to transfer patient to [facility]. I will hold the CT scan and have it done in the [facility]. Home Meds No Active Prescriptions or Reported Meds Follow-up Plan [facility] Primary Care Provider Care Physician No Primary Pending Labs Laboratory Tests Test 03/28/19 05:04 White Blood Count 10.1 10^3/ul (4.8-10.8) Red Blood Count 3.52 10^6/ul (4.20-5.40) Hemoglobin 11.0 g/dl (12.0-16.0) Hematocrit 32.6 % (37.0-47.0) Mean Corpuscular Volume 92.6 fl (82.0-101.0) Mean Corpuscular Hemoglobin 31.3 pg (29.0-33.0) Mean Corpuscular Hemoglobin Concent 33.7 g/dl (32.0-37.0) Red Cell Distribution Width 13.2 % (11.5-14.5) Platelet Count 246 10^3/UL (140-415) Mean Platelet Volume 9.8 fl (7.4-10.4) Immature Granulocytes % 0.600 % (0.001-0.429) Neutrophils % 71.5 % (39.0-77.0) Lymphocytes % 16.4 % (15.0-51.0) Monocytes % 8.8 % (0.0-11.0) Eosinophils % 2.3 % (0.0-7.0) Basophils % 0.4 % (0.0-2.0) Nucleated Red Blood Cells % 0.0 /100WBC (0.0-0.0) Immature Granulocytes # 0.060 10^3/ul (0.0-0.031) Neutrophils # 7.3 10^3/ul (1.6-7.5) Lymphocytes # 1.7 10^3/ul (0.8-2.9) Monocytes # 0.9 10^3/ul (0.3-0.9) Eosinophils # 0.2 10^3/ul (0.0-0.5) Basophils # 0.0 10^3/ul (0.0-0.1) Nucleated Red Blood Cells # 0.0 10^3/ul (0.0-0.0) Sodium Level 137 mmol/L (135-144) Potassium Level 3.7 mmol/L (3.5-5.1) Chloride Level 106 mmol/L (97-110) Carbon Dioxide Level 26 mmol/L (21-31) Anion Gap 5 (5-13) Blood Urea Nitrogen 7 mg/dl (7-20) Creatinine 0.54 mg/dl (0.44-1.00) Est Glomerular Filtrat Rate mL/min > 60 mL/min (>60) Glucose Level 93 mg/dl (70-220) Calcium Level 8.2 mg/dl (8.4-10.2) Magnesium Level 2.0 mg/dl (1.7-2.5) SINGH CAT MD Mar 28, 2019 15:48
[2019-03-28 18:14] VITALS: BP 107/67; PULSE 75; RESP 18
== END 2019-03-28 18:45 | disposition short-term general hospital (02) | DRG 854 ==
LOC: E/R 05:05 → REC 08:58 → MS1 15:58
PROVIDERS: ADMIT Internal Medicine; ATTEND Internal Medicine
PROC: 0DTJ4ZZ Resection of Appendix, Percutaneous Endoscopic Approach (ICD-10-PCS; principal; 2019-03-23 13:00)
DX: A41.9 Sepsis, unspecified organism (principal); K35.30 Acute appendicitis with localized peritonitis, without perforation or gangrene; J45.20 Mild intermittent asthma, uncomplicated; K42.9 Umbilical hernia without obstruction or gangrene; F17.200 Nicotine dependence, unspecified, uncomplicated; B96.20 Unspecified Escherichia coli [E. coli] as the cause of diseases classified elsewhere; B96.1 Klebsiella pneumoniae [K. pneumoniae] as the cause of diseases classified elsewhere; B95.2 Enterococcus as the cause of diseases classified elsewhere
CPT/HCPCS: 36415; 74176; 74177; 75989; 77012; 80048; 80053; 83605; 83690; 83735; 84100; 84443; 84703; 85025; 85610; 85730; 86803; 87070; 87075; 87340; 88304; 96361; 96365; 96367; 96375; 96376; C1729; J0690; J0696; J1100; J1170; J1200; J1650; J1956; J2270; J2405; J2543; J3010; J7030; J7040; Q9967